=== PATIENT | female | born 1965 | race Caucasian/White ===

== ENCOUNTER 2024-02-03 15:26 | Emergency (ER) | payer OTHER, SELFPAY ==
[2024-02-03 15:29] VITALS: BP 167/84
--- NOTE | 2024-02-03 16:01 | ED.GENMED ---
History of Present Illness
General
Chief Complaint: Chest Pain
Source: patient
Exam Limitations: none
Time Seen by Provider: 02/03/24 15:58
Nursing documentation reviewed up to this point in time: agreed with
Travel History
Have you had any contact with someone who has COVID-19?: No
Do you have any symptoms of coronavirus? Fever > 100 degrees, chills, cough, shortness of breath, sore throat, loss of taste or smell, muscle aches, or headache?: No
History of Present Illness
History of Present Illness:
58-year-old female with no significant past medical history her for chest pain radiating down left arm.
4 days ago while relaxing felt mid to left chest pain only with deep breaths, radiating to her left shoulder area. She took Advil with some relief.
3 days ago she states that chest discomfort was minimal and she went about her daily activities.
2 days ago pain was still there minimally waxing and waning, she got some surprising anxiety producing news that day was informed that her 25-year-old daughter is and she has felt extremely anxious about the situation ever since.
Yesterday the pain was waxing and waning and she was worrying a lot
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 This episode lasted 2-1/2 hours. During that time she did chew 2 regular aspirin and eventually the arm symptoms went away to now just a
'lingering sensation.'
She denies nausea or vomiting, she denies breaking out in a sweat, she denies feeling weak dizzy or lightheaded.
For past month she had a significant cough and sinus congestion with similar mid chest pressure. She still has a lingering cough and mild pressure in her chest from that URI. Left side neck is sore also
Past History
Past History
ED Past Medical History: None
ED Past Surgical History: Other (sinus surgery)
Social History
Tobacco: Non-smoker
Alcohol: Occasional
Personal:
Living: with family
Employment: Employed
Family History
Family History: Negative Early CAD or Sudden
Review of Systems
Review of Systems
Allergies reviewed?: Yes
All Other Systems: ROS reviewed and negative except as documented in HPI and ROS
Constitutional: Denies fever or fatigue
Respiratory: Denies trouble breathing
Cardiac: Reports chest pain; Denies palpitations or syncope
ABD/GI: Denies abdominal pain, nausea, vomiting or diarrhea
: Reports no symptoms
Musculoskeletal: Reports neck pain (left neck soreness)
Skin: Reports no symptoms
Neurological: Reports no symptoms
Phy Exam
Physical Exam
Physical Exam:
GENERAL: No acute distress. A&Ox3.
CONSTITUTIONAL: Afebrile.
EYES: PERRL, conjunctivae normal
Neck: Supple
ENMT: moist mucus membranes, Pharynx nl
RESPIRATORY: Regular respirations, nonlabored, lungs clear.
CARDIOVASCULAR: Regular rate and rhythm, no murmurs, no rubs.
GI: Soft, nontender, normal BS
MUSCULOSKELETAL: Mild left neck ST tenderness to palpation and sore with movement. Full ROM of neck. Chest pain not reproducible on palpation. Moves with ease. Well perfused.
SKIN: Warm, dry, pink
PSYCH: Normal mood and affect. Well kept, interactive and appropriate
NEUROLOGIC: Awake, alert and oriented. No focal neurological deficits
Scores
Heart Score for Chest Pain Patients
STEMI patient?: No
History: Slightly or Non-Suspicious
ECG: Normal
Age: >45 - <65 years
Risk Factors: No Risk Factors
Troponin: </= Normal Limit
Heart Score for Chest Pain Patients: 1
Heart Score Risk: 2.5% MACE over next 6 weeks
Course
Orders/Labs/Results
Orders:
Orders
02/03/24 15:28
Electrocardiogram (*1) Urgent
Reason for Study: Chest Pain
EKG- Treatment ONCE
02/03/24 16:18
CMP [Comprehensive Metabolic Panel] Urgent
Complete Blood Count/With Diff Urgent
Troponin I Urgent
CR Chest - 2 Views Urgent
Comment:
Reason For Exam: chest pain
02/03/24 17:23
Troponin I Urgent
Abnormal Lab Results
02/03/24
16:18
BUN 19 H mg/dl
(7-17)
02/03/24 16:18
02/03/24 16:18
Vital Signs
Initial and Last Documented VS:
Initial Vital Signs
Temp Pulse Resp BP Pulse Ox
98.1 F 72 16 167/84 100
02/03/24 15:29 02/03/24 15:29 02/03/24 15:29 02/03/24 15:29 02/03/24 15:29
Last Documented Vital Signs
Temp Pulse Resp BP Pulse Ox
98.1 F 63 17 143/77 100
02/03/24 15:29 02/03/24 18:30 02/03/24 18:30 02/03/24 18:10 02/03/24 18:30
MDM/Problems Addressed
Differential Diagnosis Includes:
ACS, costochondritis, musculoskeletal, anxiety
MDM/Problems Addressed:
58-year-old female with no significant past medical history her for chest pain radiating down left arm.
4 days ago while relaxing felt mid to left chest pain only with deep breaths, radiating to her left shoulder area. She took Advil with some relief.
3 days ago she states that chest discomfort was minimal and she went about her daily activities.
2 days ago pain was still there minimally waxing and waning, she got some surprising anxiety producing news that day was informed that her 25-year-old daughter is and she has felt extremely anxious about the situation ever since.
Yesterday the pain was waxing and waning and she was worrying a lot
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 This episode lasted 2-1/2 hours. During that time she did chew 2 regular aspirin and eventually the arm symptoms went away to now just a
'lingering sensation.'
She denies nausea or vomiting, she denies breaking out in a sweat, she denies feeling weak dizzy or lightheaded.
1 month ago she had a significant cough and sinus congestion with similar mid chest pressure. She still has a lingering cough and mild pressure in her chest from that URI. Left side neck is sore also
EKG NSR
4:13 PM
CBC normal
CMP normal
chest x-ray NAD
Troponin normal
5:30 p.m.
Troponin #2 normal
No indication of cardiac etiology of symptoms
Pt has been coughing a lot and may have strained the chest wall and neck, she agrees as she has had significant coughing spasms.
Stable for discharge.
*EKG
EKG Intrepretation Date: 02/03/24
Interpretation: normal
Rate: normal
Rhythm: sinus
[place]: normal axis
Interval: normal interval
QRS Pattern: normal QRS
Ischemia: no ischemia
*Critical Care Note
Total Time (30-74mins, 75-104mins- exclusive of procedures): Not Applicable
ED Attending Note
-
Portions of this chart may have been created with voice recognition software.� Occasional wrong word or��sound alike� substitutions may have occurred due to the inherent limitations of voice recognition software.
Discharge Plan
Departure
Patient Disposition: Home (Routine Discharge)
Date of Disposition: 02/03/24
Time of Disposition: 18:29
Patient with high blood pressure during this ER visit?: Yes
Condition: Good
Discharge Problem:
Atypical chest pain
Instructions: Acid Reflux and GERD in Adults (DC), Costochondritis (DC), BLOOD PRESSURE
Prescriptions:
No Action
Xhance 93 mcg/actuation Aerosol Breath Activated
1 spray INTRANASAL DAILY
Referrals:
Sherly Shaw MD [Active] - Next open appointment
Renato Hernandez DO [Family Provider] -
Activity Restrictions/Additional Instructions:
As we discussed, your workup here shows nothing worrisome, specifically no sign of heart attack
Call the cardiology office and make appointment for a more thorough cardiac evaluation.
Return here immediately for worsening chest pain, chest pain associated with sweating, shortness of breath, lightheadedness or feeling sicker in any way.
Ibuprofen 600 mg (with food) every 8 hours as needed for pain.
You may take over the counter Omeprazole for reflux to see if it helps.
Interventions
Interventions:
*Risk Screen - Suicide Last Done: 02/03/24 18:40
*General Assessment Last Done: 02/03/24 18:40
*Neglect/Abuse Screening Last Done: 02/03/24 18:40
ED- Fall Risk Assessment Last Done: 02/03/24 18:40
*ED COVID-19 Vaccine History Last Done: 02/03/24 15:29
*Nursing Disposition Last Done: 02/03/24 18:40
ED- Cardiac Assessment Last Done: 02/03/24 16:30
Discharge Date and Time
Discharge Date/Time: 02/03/24 18:41
Print Language: DANISH
[2024-02-03 16:10] VITALS: BP 158/88
[2024-02-03 16:30] LABS: % Basophils 0.4 % (0-2); % Eosinophils 4.3 % (0-6); % Immature Granulocytes 0.1 % (0-0.5); % Lymphocytes 38.7 % (20.5-51.1); % Neutrophils 51.5 % (42.2-75.2); Absolute Eosinophils 0.4 10^3/uL (0-0.7); Absolute Lymphocytes 3.3 10^3/uL (1.2-3.4); Absolute Monocytes 0.4 10^3/uL (0.1-0.6); Absolute Neutrophils 4.3 10^3/uL (1.4-6.5); Hematocrit 38.2 % (37.0-47.0); Hemoglobin 12.9 g/dL (12.0-16.0); Mean Corp Hgb Conc. 33.8 g/dL (33.0-37.0); Mean Corpuscular Hgb 28.9 pg (27.0-31.0); Mean Corpuscular Volume 85.5 fL (81.0-99.0); Mean Platelet Volume 8.5 fL (7.4-10.4); Nucleated Red Blood Cells % 0 %; Platelet Count 343 10^3/uL (130-400); Red Blood Cell Count 4.47 10^6/uL (4.20-5.40); Red Cell Dist. Width 12.3 % (11.5-14.5); White Blood Cell Count 8.4 10^3/uL (4.8-10.8)
[2024-02-03 16:45] LABS: ALT (SGPT) 13 U/L (0-35); AST (SGOT) 23 U/L (14-36); Albumin 4.8 g/dl (3.5-5.0); Alkaline Phosphatase 60 U/L (38-126); Blood Urea Nitrogen 19 mg/dl (7-17); Calcium 9.8 mg/dl (8.4-10.2); Carbon Dioxide 25 mmol/L (22-30); Chloride 104 mmol/L (98-107); Glucose 86 mg/dl (70-99); Potassium 4.8 mmol/L (3.5-5.1); Sodium 135 mmol/L (135-145); Total Bilirubin 0.7 mg/dl (0.2-1.3); Total Protein 7.9 g/dl (6.3-8.2); eGFR > 60.00
[2024-02-03 16:52] LABS: Troponin I < 0.012 ng/ml
[2024-02-03 17:12] VITALS: BP 137/83
[2024-02-03 17:56] LABS: Troponin I < 0.012 ng/ml
[2024-02-03 18:10] VITALS: BP 143/77
== END 2024-02-03 18:41 | disposition home or self-care (01) ==
LOC: EMR 15:26
PROVIDERS: Emergency Medicine; Registered Nurse; EMERGENCY PHYSICIAN Emergency Medicine; FAMILY PHYSICIAN Family Medicine
DX: R07.89 Other chest pain (principal)
CPT/HCPCS: 99285; 71046; 80053; 84484; 85025; 93005